=== PATIENT | male | born 1975 | race Caucasian/White ===

== ENCOUNTER 2019-04-20 20:17 | Emergency (ER) | payer OTHER ==
[~2019-04-20] VITALS: Ht 167.6 cm; Wt 63.6 kg
[2019-04-20] MEDS ORDERED: FLUORESCEIN SODIUM 1 MG STRIP OU ONE (21:30)
[2019-04-20] MEDS ORDERED: TETRACAINE HCL/PF 0.5% 4 ML OPHTHALMIC SOLUTION OU ONE (21:30)
[2019-04-20] MEDS ORDERED: TETRACAINE HCL VISCOUS 0.5% 5 ML OPHTHALMIC SOLUTION OU ONE (21:45)
[2019-04-20] MEDS ORDERED: GENTAMICIN SULFATE 0.3% OPHTHALMIC SOLUTION 5 ML OD ONE (22:00)
[2019-04-20 22:05] VITALS: BP 126/78
== END 2019-04-20 22:36 | disposition home or self-care (01) ==
LOC: EMS 20:20
DX: S05.01XA Injury of conjunctiva and corneal abrasion without foreign body, right eye, initial encounter (principal); X58.XXXA Exposure to other specified factors, initial encounter; Y93.89 Activity, other specified; Y92.89 Other specified places as the place of occurrence of the external cause; Y99.8 Other external cause status